=== PATIENT | female | born 1955 | race Caucasian/White ===

== ENCOUNTER 2025-08-14 14:32 | Inpatient (IN) | payer OTHER ==
[2025-08-14] MEDS ORDERED: Nitroglycerin 0.4 MG TAB (25 Tab Bottle) SL PRN (19:34)
[2025-08-14] MEDS ORDERED: Glucagon 1 MG/ML KIT IM PRN (19:34)
[2025-08-14] MEDS ORDERED: Albuterol 200 PUFF (6.7GM INHALER) INH PRN (19:34)
[2025-08-14] MEDS ORDERED: Dextrose 50% Abboject 50 ML SYRINGE SLOW IVP PRN (19:34)
[2025-08-14] MEDS: PNEUMOC 20-VAL CONJ-DIP CRM/PF 0.5 ML SYRINGE IM ONE (19:56)
[2025-08-14] MEDS: cefTRIAXone\\ROCEPHIN 2 GM in Sodium Chloride 0.9% 100 ML IVPB SCH (20:43)
[2025-08-14] MEDS: Gabapentin 100 MG CAP PO SCH (20:47)
[2025-08-15 05:33] LABS: Hematocrit 21.8 % (36.0-47.0); Hemoglobin 7.9 g/dL (12.0-16.0); MDiff Complete? YES; Mean Corpuscular Hemoglobin 28.2 pg (27.0-31.0); Mean Corpuscular Volume 78.2 fl (78.0-98.0); Platelet Adequacy Comment Appears Adequate; Platelet Count 227 10x3/uL (130-400); Red Blood Cell (RBC) Count 2.78 mill/uL (4.20-5.40); White Blood Cell (WBC) Count 5.0 10x3/uL (4.8-10.8)
[2025-08-15 05:42] LABS: Vancomycin, Random 23.6 ug/mL (See Comment)
[2025-08-15 05:43] LABS: ALT (SGPT) 9 U/L (Less than 34); AST (SGOT) 17 U/L (11-34); Albumin 1.8 g/dL (3.1-4.5); Alkaline Phosphatase 59 U/L (40-110); Anion Gap 14 mmol/L (10-20); BUN (Urea Nitrogen) 9 mg/dL (9.8-20.1); Bilirubin, Total 0.3 mg/dL (0.3-1.2); Calc. Creatinine Clearance 108 mL/min (70-130); Calcium 8.0 mg/dL (7.8-10.44); Carbon Dioxide 27 mmol/L (23-31); Chloride 93 mmol/L (98-107); Globulin 3.7 g/dL (2.4-3.5); Glucose 128 mg/dL (80-115); Potassium 3.4 mmol/L (3.5-5.1); Sodium 131 mmol/L (136-145)
[2025-08-15] MEDS ORDERED: Glucagon 1 MG/ML KIT IM PRN (08:17)
[2025-08-15] MEDS ORDERED: Dextrose 50% Abboject 50 ML SYRINGE SLOW IVP PRN (08:17)
[2025-08-15] MEDS: Losartan 50 MG TAB PO SCH (09:08)
[2025-08-15] MEDS: Aspirin 81 mg Enteric Coated Tablet PO SCH (09:08)
[2025-08-15] MEDS: Fluconazole 100 MG TAB PO SCH (09:08)
[2025-08-15] MEDS: Lantus 1000 UNITS/10 ML VIAL SC SCH (09:09)
[2025-08-15] MEDS: Furosemide 40 MG TAB PO SCH (09:09)
[2025-08-15] MEDS: Famotidine 20 MG TAB PO SCH (09:09)
[2025-08-15] MEDS: Pantoprazole 40 MG VIAL IVP SCH (09:09)
[2025-08-15] MEDS: Ferrous Sulfate 325 MG TAB PO SCH (09:09)
[2025-08-15] MEDS: cefTRIAXone\\ROCEPHIN 2 GM in Sodium Chloride 0.9% 100 ML IVPB SCH (13:05)
[2025-08-15] MEDS ORDERED: cefTRIAXone (ROCEPHIN) 2 GM VIAL IVPB SCH (14:00)
[2025-08-15] MEDS: Senokot S 8.6-50 MG TAB PO PRN (16:44)
[2025-08-15] MEDS: Vancomycin HCl 750 MG in Sodium Chloride 0.9% 250 ML 250 ML IVPB SCH (20:39)
[2025-08-17 05:33] LABS: Vancomycin, Random 25.9 ug/mL (See Comment)
[2025-08-17 05:34] LABS: Calc. Creatinine Clearance 91.0 mL/min (70-130)
[2025-08-18 05:19] LABS: Vancomycin, Random 25.4 ug/mL (See Comment)
[2025-08-18 05:21] LABS: Calc. Creatinine Clearance 82.0 mL/min (70-130)
[2025-08-18] MEDS: Vancomycin HCl 750 MG in Sodium Chloride 0.9% 250 ML 250 ML IVPB SCH (21:04)
[2025-08-20 05:22] LABS: #Basophils 0.1 thou/uL (0.0-0.2); #Eosinophils 0.1 thou/uL (0.0-0.7); #Lymphocytes 1.9 thou/uL (1.20-3.40); #Monocytes 0.2 thou/uL (0.11-0.59); #Neutrophils 1.6 thou/uL (1.40-6.50); %Basophils 2.2 % (0.0-1.0); %Eosinophils 3.7 % (0.0-10.0); %Lymphocytes 49.3 % (21.0-51.0); %Monocytes 4.4 % (0.0-10.0); %Neutrophils 40.4 % (42.0-75.0); ALT (SGPT) Less than 7 U/L (Less than 34); AST (SGOT) 14 U/L (11-34); Albumin 1.5 g/dL (3.1-4.5); Alkaline Phosphatase 60 U/L (40-110); Anion Gap 12 mmol/L (10-20); BUN (Urea Nitrogen) 14 mg/dL (9.8-20.1); Bilirubin, Total 0.2 mg/dL (0.3-1.2); Calc. Creatinine Clearance 86 mL/min (70-130); Calcium 8.0 mg/dL (7.8-10.44); Carbon Dioxide 28 mmol/L (23-31); Chloride 97 mmol/L (98-107); Globulin 3.5 g/dL (2.4-3.5); Glucose 150 mg/dL (80-115); Hematocrit 19.1 % (36.0-47.0); Hemoglobin 6.6 g/dL (12.0-16.0); Mean Corpuscular Hemoglobin 27.3 pg (27.0-31.0); Mean Corpuscular Volume 79.2 fl (78.0-98.0); Platelet Count 256 10x3/uL (130-400); Potassium 3.4 mmol/L (3.5-5.1); Red Blood Cell (RBC) Count 2.41 mill/uL (4.20-5.40); Sodium 134 mmol/L (136-145); Vancomycin, Random 29.3 ug/mL (See Comment); White Blood Cell (WBC) Count 3.9 10x3/uL (4.8-10.8)
[2025-08-20] MEDS: diphenhydrAMINE 25 MG CAP PO SCH (09:31)
[2025-08-20 12:07] LABS: Glucose 157 mg/dL (80-115)
[2025-08-20] MEDS: Furosemide 40 MG (4 mL) VIAL SLOW IVP SCH (15:02)
[2025-08-20 17:21] LABS: Glucose 138 mg/dL (80-115)
[2025-08-21 05:37] LABS: Hematocrit 30.3 % (36.0-47.0); Hemoglobin 10.9 g/dL (12.0-16.0)
[2025-08-22 05:16] LABS: Calc. Creatinine Clearance 83.0 mL/min (70-130); Vancomycin, Random 28.2 ug/mL (See Comment)
[2025-08-23 05:33] LABS: ALT (SGPT) Less than 7 U/L (Less than 34); AST (SGOT) 13 U/L (11-34); Albumin 1.6 g/dL (3.1-4.5); Alkaline Phosphatase 60 U/L (40-110); Anion Gap 12 mmol/L (10-20); BUN (Urea Nitrogen) 16 mg/dL (9.8-20.1); Bilirubin, Total 0.3 mg/dL (0.3-1.2); Calc. Creatinine Clearance 75 mL/min (70-130); Calcium 8.1 mg/dL (7.8-10.44); Carbon Dioxide 29 mmol/L (23-31); Chloride 95 mmol/L (98-107); Globulin 3.7 g/dL (2.4-3.5); Glucose 115 mg/dL (80-115); Potassium 3.4 mmol/L (3.5-5.1); Sodium 133 mmol/L (136-145)
[2025-08-23 05:42] LABS: #Basophils 0.1 thou/uL (0.0-0.2); #Eosinophils 0.1 thou/uL (0.0-0.7); #Lymphocytes 2.0 thou/uL (1.20-3.40); #Monocytes 0.1 thou/uL (0.11-0.59); #Neutrophils 2.7 thou/uL (1.40-6.50); %Basophils 1.8 % (0.0-1.0); %Eosinophils 2.6 % (0.0-10.0); %Lymphocytes 39.9 % (21.0-51.0); %Monocytes 2.8 % (0.0-10.0); %Neutrophils 52.8 % (42.0-75.0); Hematocrit 27.0 % (36.0-47.0); Hemoglobin 9.5 g/dL (12.0-16.0); Mean Corpuscular Hemoglobin 28.0 pg (27.0-31.0); Mean Corpuscular Volume 79.7 fl (78.0-98.0); Platelet Count 200 10x3/uL (130-400); Red Blood Cell (RBC) Count 3.39 mill/uL (4.20-5.40); White Blood Cell (WBC) Count 5.1 10x3/uL (4.8-10.8)
[2025-08-23] MEDS: Sertraline 25 MG TAB PO SCH (08:22)
[2025-08-24] MEDS: Multivitamin W/ Minerals 1 TAB PO SCH (08:56)
[2025-08-25 05:18] LABS: Vancomycin, Random 24.1 ug/mL (See Comment)
[2025-08-25 05:22] LABS: ALT (SGPT) Less than 7 U/L (Less than 34); AST (SGOT) 13 U/L (11-34); Albumin 1.6 g/dL (3.1-4.5); Alkaline Phosphatase 62 U/L (40-110); Anion Gap 15 mmol/L (10-20); BUN (Urea Nitrogen) 18 mg/dL (9.8-20.1); Bilirubin, Total 0.3 mg/dL (0.3-1.2); Calc. Creatinine Clearance 77 mL/min (70-130); Calcium 8.3 mg/dL (7.8-10.44); Carbon Dioxide 28 mmol/L (23-31); Chloride 94 mmol/L (98-107); Globulin 4.1 g/dL (2.4-3.5); Glucose 136 mg/dL (80-115); Hematocrit 27.9 % (36.0-47.0); Hemoglobin 10.1 g/dL (12.0-16.0); MDiff Complete? YES; Mean Corpuscular Hemoglobin 28.7 pg (27.0-31.0); Mean Corpuscular Volume 78.9 fl (78.0-98.0); Platelet Adequacy Comment Appears Adequate; Platelet Count 203 10x3/uL (130-400); Potassium 3.8 mmol/L (3.5-5.1); Red Blood Cell (RBC) Count 3.53 mill/uL (4.20-5.40); Sodium 133 mmol/L (136-145); White Blood Cell (WBC) Count 4.3 10x3/uL (4.8-10.8)
[2025-08-25] MEDS: Acetaminophen 325 MG TAB PO PRN (23:19)
[2025-08-27] MEDS: Furosemide 40 MG TAB PO SCH (07:47)
[2025-08-27] MEDS: Lantus 1000 UNITS/10 ML VIAL SC SCH (07:54)
[2025-08-28 05:19] LABS: Anion Gap 14 mmol/L (10-20); BUN (Urea Nitrogen) 35 mg/dL (9.8-20.1); Calc. Creatinine Clearance 72 mL/min (70-130); Calcium 8.4 mg/dL (7.8-10.44); Carbon Dioxide 27 mmol/L (23-31); Chloride 98 mmol/L (98-107); Glucose 133 mg/dL (80-115); Potassium 4.3 mmol/L (3.5-5.1); Sodium 135 mmol/L (136-145)
[2025-08-28 05:20] LABS: Hematocrit 24.9 % (36.0-47.0); Hemoglobin 8.9 g/dL (12.0-16.0); MDiff Complete? YES; Mean Corpuscular Hemoglobin 28.5 pg (27.0-31.0); Mean Corpuscular Volume 80.2 fl (78.0-98.0); Platelet Adequacy Comment Appears Adequate; Platelet Count 208 10x3/uL (130-400); Red Blood Cell (RBC) Count 3.11 mill/uL (4.20-5.40); White Blood Cell (WBC) Count 5.3 10x3/uL (4.8-10.8)
[2025-08-30 05:12] LABS: Calc. Creatinine Clearance 70.0 mL/min (70-130); Vancomycin, Random 26.7 ug/mL (See Comment)
[2025-08-31 05:40] LABS: ALT (SGPT) 11 U/L (Less than 34); AST (SGOT) 24 U/L (11-34); Albumin 1.7 g/dL (3.1-4.5); Alkaline Phosphatase 61 U/L (40-110); Anion Gap 14 mmol/L (10-20); BUN (Urea Nitrogen) 42 mg/dL (9.8-20.1); Bilirubin, Total 0.2 mg/dL (0.3-1.2); Calc. Creatinine Clearance 63 mL/min (70-130); Calcium 8.8 mg/dL (7.8-10.44); Carbon Dioxide 25 mmol/L (23-31); Chloride 101 mmol/L (98-107); Globulin 3.9 g/dL (2.4-3.5); Glucose 126 mg/dL (80-115); Potassium 3.9 mmol/L (3.5-5.1); Sodium 136 mmol/L (136-145)
[2025-08-31 05:54] LABS: #Basophils 0.1 thou/uL (0.0-0.2); #Eosinophils 0.3 thou/uL (0.0-0.7); #Lymphocytes 2.0 thou/uL (1.20-3.40); #Monocytes 0.3 thou/uL (0.11-0.59); #Neutrophils 2.9 thou/uL (1.40-6.50); %Basophils 1.8 % (0.0-1.0); %Eosinophils 4.6 % (0.0-10.0); %Lymphocytes 36.5 % (21.0-51.0); %Monocytes 6.1 % (0.0-10.0); %Neutrophils 51.1 % (42.0-75.0); Hematocrit 25.5 % (36.0-47.0); Hemoglobin 9.2 g/dL (12.0-16.0); Mean Corpuscular Hemoglobin 29.2 pg (27.0-31.0); Mean Corpuscular Volume 80.5 fl (78.0-98.0); Platelet Count 212 10x3/uL (130-400); Red Blood Cell (RBC) Count 3.17 mill/uL (4.20-5.40); White Blood Cell (WBC) Count 5.6 10x3/uL (4.8-10.8)
[2025-09-01 05:22] LABS: Calc. Creatinine Clearance 68.0 mL/min (70-130)
[2025-09-03 06:30] LABS: Calc. Creatinine Clearance 60.0 mL/min (70-130)
[2025-09-04 06:25] LABS: Calc. Creatinine Clearance 71.0 mL/min (70-130)
[2025-09-04 06:53] LABS: Vancomycin, Random 27.9 ug/mL (See Comment)
[2025-09-04 10:33] LABS: ALT (SGPT) 10 U/L (Less than 34); AST (SGOT) 18 U/L (11-34); Albumin 1.7 g/dL (3.1-4.5); Alkaline Phosphatase 59 U/L (40-110); Anion Gap 13 mmol/L (10-20); BUN (Urea Nitrogen) 37 mg/dL (9.8-20.1); Bilirubin, Total 0.3 mg/dL (0.3-1.2); Calc. Creatinine Clearance 70 mL/min (70-130); Calcium 8.4 mg/dL (7.8-10.44); Carbon Dioxide 26 mmol/L (23-31); Chloride 102 mmol/L (98-107); Globulin 4.0 g/dL (2.4-3.5); Glucose 159 mg/dL (80-115); Potassium 4.2 mmol/L (3.5-5.1); Sodium 137 mmol/L (136-145)
[2025-09-04 10:47] LABS: #Basophils 0.1 thou/uL (0.0-0.2); #Eosinophils 0.4 thou/uL (0.0-0.7); #Lymphocytes 1.9 thou/uL (1.20-3.40); #Monocytes 0.4 thou/uL (0.11-0.59); #Neutrophils 2.8 thou/uL (1.40-6.50); %Basophils 2.5 % (0.0-1.0); %Eosinophils 7.2 % (0.0-10.0); %Lymphocytes 33.2 % (21.0-51.0); %Monocytes 6.5 % (0.0-10.0); %Neutrophils 50.5 % (42.0-75.0); Hematocrit 23.2 % (36.0-47.0); Hemoglobin 8.3 g/dL (12.0-16.0); Mean Corpuscular Hemoglobin 28.6 pg (27.0-31.0); Mean Corpuscular Volume 80.0 fl (78.0-98.0); Platelet Count 177 10x3/uL (130-400); Red Blood Cell (RBC) Count 2.90 mill/uL (4.20-5.40); White Blood Cell (WBC) Count 5.6 10x3/uL (4.8-10.8)
[2025-09-04 12:05] LABS: Glucose, Urine (Dipstick) Negative (Negative); Leukocyte Small (Negative); Protein, Urine (Dipstick) 100 mg/dL (Neg-Trace); Specific Gravity, Urine 1.010 (1.005-1.030)
[2025-09-04 12:14] LABS: Bacteria/HPF 1+ HPF (None Seen)
[2025-09-04] MEDS: Ciprofloxacin 500 MG TAB PO SCH (20:26)
[2025-09-05 05:33] VITALS: BMI 41.2
[2025-09-06 06:45] LABS: Calc. Creatinine Clearance 75.0 mL/min (70-130)
[2025-09-08 08:35] VITALS: BMI 43.1
[2025-09-11 06:08] VITALS: BP 122/58; TEMP 97.6
== END 2025-09-11 13:18 | disposition home health service (06) | DRG 945 ==
LOC: BURMED 15:05
PROVIDERS: ADMIT Family Medicine; ATTEND Nurse Practitioner
PROC: F07L6ZZ Therapeutic Exercise Treatment of Musculoskeletal System - Lower Back / Lower Extremity (ICD-10-PCS; principal; 2025-08-12)
DX: R53.1 Weakness (principal); M86.8X8 Other osteomyelitis, other site; N30.00 Acute cystitis without hematuria; R33.9 Retention of urine, unspecified; N18.32 Chronic kidney disease, stage 3b; D63.1 Anemia in chronic kidney disease; E11.22 Type 2 diabetes mellitus with diabetic chronic kidney disease; Z79.4 Long term (current) use of insulin; Z86.73 Personal history of transient ischemic attack (TIA), and cerebral infarction without residual deficits; Z79.82 Long term (current) use of aspirin; Z79.899 Other long term (current) drug therapy; Z97.4 Presence of external hearing-aid; Z74.01 Bed confinement status
CPT/HCPCS: 36415; 36416; 36430; 80048; 80053; 80202; 81001; 82565; 82607; 82668; 84443; 85014; 85025; 85046; 86140; 86850; 86900; 86901; 87086; 97602; J0696; J1815; J1940; J2470; J3373; J7030; J7050; P9016; Q0162